=== PATIENT | female | born 1975 | race Hispanic/Latino ===

== ENCOUNTER 2017-01-03 06:53 | Day surgery (SDC) | payer BC ==
[~2017-01-03 06:53] MED LIST: NACL 0.9% 1000 ML 1,000 ML IV SCH; PEPCID IV NR; REGLAN IV NR; VERSED IV NR
--- NOTE | 2017-01-03 06:57 | Short Stay Summary ---
Short Stay Documentation Date of service: 01/03/17 Narrative H&P: Patient is a 41 year old who presents today for elective sterilization. She has 2 other children at home. She has no major medical issues. she has had no previous surgeries. - History H&P: obtained from office Past Medical History: No medical history Past Surgical History: No surgical history Social history: single, smoking - Allergies and Medications Current Medications: Allergies No Known Allergies Allergy (Unverified 12/28/16 17:38) Home Medications Medication Instructions Recorded Confirmed Last Taken Type Tri-Sprintec Tablet 1 tab PO DAILY 12/28/16 12/28/16 Unknown History Active Medications Famotidine (Pepcid) 20 mg IV PREOP NR Stop: 01/03/17 23:00 Sodium Chloride (Nacl 0.9% 1000 Ml) 1,000 mls @ 75 mls/hr IV DIRECT [place] Metoclopramide HCl (Reglan) 10 mg IV PREOP NR Stop: 01/03/17 23:00 Midazolam HCl (Versed) 2 mg IV PREOP NR Stop: 01/03/17 23:59 - Physical exam General appearance: no acute distress Integumentary: no rash, no growths, no abnormal pigmentation HEENT: Atraumatic Lungs: Clear to auscultation, Normal air movement Breasts: deferred Heart: Regular rate, Normal S1, Normal S2 Gastrointestinal: normal, normoactive bowel sounds Female Genitourinary: normal Rectal Exam: deferred Extremities: No edema - Brief post op/procedure progress note Date of procedure: 01/03/17 Pre-op diagnosis: undesired fertility Post-op diagnosis: same Procedure: Laparoscopic Bilateral Salpingectomy Anesthesia: GETA Findings: Normal uterus tubes and ovaries Surgeon: JENNIFER AUGUSTINE Estimated blood loss: minimal Pathology: list (right and left fallopian tubes) Specimen disposition: to lab Condition: stable - Hospital course Hospital course: unremarkable - Disposition Condition at discharge: Good Disposition: DC- TO HOME OR SELFCARE Short Stay Discharge Plan Activity: advance as tolerated Weight Bearing Status: Weight Bear as Tolerated Diet: regular Follow up with: JENNIFER AUGUSTINE MD [Staff Physician] - 14 Days Prescriptions: HYDROcodone/APAP 5-325 [[place] 5/325] 1 each PO Q6HR PRN #40 tablet PRN Reason: Pain Ibuprofen [Motrin] 800 mg PO Q8HR PRN #40 tablet PRN Reason: Pain
[2017-01-03] MEDS ORDERED: ANCEF/STERILE WATER 2 GM/20 ML 2 GM/20 ML SYRINGE IV NR (07:00)
--- NOTE | 2017-01-03 07:25 | Anesthesia Day of Surgery ---
Anesthesia Day of Surgery - Day of Surgery Patient Examined: Yes Patient H&P Reviewed: Yes Patient is NPO: Yes
[2017-01-03] MEDS ORDERED: MARCAINE 0.25% INFILTRATI ONE ×2 (07:28→08:35)
[2017-01-03] MEDS ORDERED: DILAUDID IV PRN (07:30)
[2017-01-03] MEDS ORDERED: ZOFRAN IV PRN (07:30)
--- NOTE | 2017-01-03 07:30 | Anesthesia Consultation ---
Anesthesia Consult and Med Hx Date of service: 01/03/17 - Airway Anesthetic Teeth Evaluation: Good, Chipped (top front veneer) ROM Head & Neck: Adequate Mental/Hyoid Distance: Adequate Mallampati Class: Class II Intubation Access Assessment: Probably Good - Pulmonary Exam CTA: Yes - Cardiac Exam Cardiac Exam: RRR - Pre-Operative Health Status ASA Pre-Surgery Classification: ASA2 Proposed Anesthetic Plan: General - Pulmonary Hx Smoking: Yes (1/2 PPD) Hx Asthma: No Hx Sleep Apnea: No - Cardiovascular System Hx Hypertension: No - Central Nervous System Hx Seizures: No CVA: No Hx Psychiatric Problems: No - Endocrine Hx Renal Disease: No Hx Cirrhosis: No Hx Thyroid Disease: No Hx Hypothyroidism: No - Other Systems Hx Cancer: No
[2017-01-03] MEDS ORDERED: DIPRIVAN 10 MG/ML IV ONE (07:34)
[2017-01-03] MEDS ORDERED: TORADOL ONE (08:20)
[2017-01-03] MEDS ORDERED: DECADRON ONE (08:20)
[2017-01-03] MEDS ORDERED: ZOFRAN ONE (08:20)
[2017-01-03] MEDS ORDERED: XYLOCAINE MPF 2% ONE (08:20)
[2017-01-03] MEDS ORDERED: ZEMURON IV ONE (08:20)
[2017-01-03] MEDS ORDERED: NACL 0.9% IR ONE (08:34)
[2017-01-03] MEDS ORDERED: NEOSTIGMINE ONE (08:46)
[2017-01-03] MEDS ORDERED: ROBINUL ONE ×2 (08:46)
[2017-01-03] MEDS ORDERED: NACL 0.9% 1000 ML 1,000 ML ONE (09:03)
--- NOTE | 2017-01-03 09:47 | Post Anesthesia Evaluation ---
- Post Anesthesia Evaluation Patient Participated: Yes Airway Patent: Yes Stable Respiratory Function: Yes Nausea/Vomiting: No Temp > 96.8F: Yes Pain Manageable: Yes Adequeate Hydration: Yes Anesthesia Complications: No Block Receding Appropriately: Not Applicable Patient on Ventilator: No
--- NOTE | 2017-01-03 13:16 | Operative Report ---
PREOPERATIVE DIAGNOSIS: Undesired fertility. POSTOPERATIVE DIAGNOSIS: Undesired fertility. PROCEDURE: Laparoscopic bilateral salpingectomy. SURGEON: Brandy Esparza MD ANESTHESIA: General. ESTIMATED BLOOD LOSS: Minimal. COMPLICATIONS: None. SPECIMENS: Right and left fallopian tubes. URINE OUTPUT: 100 mL of clear urine at the beginning of the procedure. IV FLUIDS: 800 mL lactated Ringer's. DESCRIPTION OF PROCEDURE: The patient was taken to the OR with IV running in place. She was appropriately identified as herself. She was given general anesthesia without difficulty. She was then placed in a dorsal lithotomy position and prepped and draped in normal sterile fashion. Attention was then turned to the patient's vagina. Her bladder was drained of approximately 100 mL of urine. Speculum was then placed into the vaginal canal to visualize the cervix. The cervix was seen and grasped with a tenaculum and was then gently sounded to approximately 7 cm, following which an acorn cannula was placed into the cervix to provide a means to manipulate the uterus. The speculum was removed. The surgeon's gloves were changed. Attention was then turned to the patient's abdomen. A small incision was made in the umbilicus. Through this incision, a 5-mm trocar was placed. The incision had been previously injected with 5 mL of Marcaine. The laparoscope confirmed intraabdominal placement. The abdomen was insufflated with CO2 gas up to approximately 15 mmHg. Under direct visualization, a second incision was made just above the midline in the symphysis pubis. Through this incision, a 5-mm trocar was placed as well. The patient was then placed in Trendelenburg position and the probe was used to move bowel out the way. The LigaSure device was used to identify both tubes. They were grasped in the mid portion near the cornua. They were cauterized and transected and then following along the broad ligament to the area of the fimbria. This was done bilaterally. Each tube was removed out through the smaller port, handed off to pathology. Once this portion of the procedure was completed and there was excellent hemostasis noted. A decision was made at the end of the procedure. Under direct visualization, a second trocar was removed. The abdomen was deflated and then 5-mm trocar was removed. These incisions were closed with 4-0 Monocryl. The sponge, lap, needle, and instrument counts were correct x2. The patient tolerated the procedure well and was taken to recovery in stable condition. JOB# [id number] AGATA/EDEL
[2017-01-03 17:17] VITALS: BP 126/78
== END 2017-01-03 10:30 | disposition home or self-care (01) ==
LOC: OR 06:53
PROVIDERS: ATTEND Obstetrics & Gynecology
DX: Z30.2 Encounter for sterilization (principal); F17.210 Nicotine dependence, cigarettes, uncomplicated
CPT/HCPCS: 58661; 81025; 88302; J0690; J1100; J1170; J1885; J2250; J2405; J2704; J2710; J2765; J7030